=== PATIENT | male | born 1955 | race Caucasian/White ===

== ENCOUNTER 2020-06-11 05:23 | Day surgery (SDC) | payer BC ==
[2020-06-04 15:52] LABS: BASOPHILS % (AUTO) 0.6 % (0-1); EOSINOPHILS # (AUTO) 0.1 X10'3 (0-0.9); EOSINOPHILS % (AUTO) 1.2 % (0-6); LYMPHOCYTES # (AUTO) 1.8 X10'3 (1.1-4.8); LYMPHOCYTES % (AUTO) 27.6 % (21-51); MEAN CORPUSCULAR HEMOGLOBIN 31.5 PG (27.0-31.0); MEAN CORPUSCULAR HGB CONC 33.8 g/dL (33.0-36.5); MEAN CORPUSCULAR VOLUME 93.3 FL (78-98); MEAN PLATELET VOLUME 9.3 FL (7.4-10.4); MONOCYTES # (AUTO) 0.5 X10'3 (0-0.9); MONOCYTES % (AUTO) 7.6 % (2-12); NEUTROPHILS # (AUTO) 4.2 X10'3 (1.8-7.7); PRE OP HEMATOCRIT 46.3 % (42.0-52.0); PRE OP HEMOGLOBIN 15.6 g/dL (14.0-17.9); PRE OP PLATELET COUNT 156 X10'3 (140-440); RED BLOOD COUNT 4.96 X10'6 (4.70-6.10); RED CELL DISTRIBUTION WIDTH 13.5 % (11.5-14.5)
[2020-06-04 16:04] LABS: ALBUMIN 3.8 G/DL (3.4-5.0); ALBUMIN/GLOBULIN RATIO 1.1 (1.1-1.5); ALKALINE PHOSPHATASE 83 IU/L (46-116); BLOOD UREA NITROGEN 12 MG/DL (7-18); CALCIUM 8.7 MG/DL (8.5-10.1); CHLORIDE 103 MMOL/L (99-107); CREATININE 0.75 MG/DL (0.60-1.10); PRE OP ALT 33 U/L (30-65); PRE OP ANION GAP 9 (8-16); PRE OP AST 11 U/L (10-37); PRE OP BILIRUB, TOTAL 0.7 MG/DL (0.0-1.0); PRE OP GLUCOSE 155 MG/DL (70-104); PRE OP POTASSIUM 3.8 MMOL/L (3.4-5.1); PRE OP SODIUM 139 MMOL/L (135-145); TOTAL CARBON DIOXIDE 26.6 MMOL/L (24-32); TOTAL PROTEIN 7.3 G/DL (6.4-8.2); eGFR > 90 ML/MIN
[2020-06-11] VITALS (11 sets, daily range): BP systolic 120–147; BP diastolic 81–92
[~2020-06-11] VITALS: Ht 172.7 cm; Wt 90.7 kg
[~2020-06-11 05:23] MED LIST: ATOR20TA PO; FEXO-25 PO; LOSA50TA3 PO; THY15T PO; ringers solution, lacted 1,000 ML IV SCH
[2020-06-11] MEDS ORDERED: famotidine 20mg tablet PO ONE (05:30)
[2020-06-11] MEDS ORDERED: cefazolin/dext.iso 2gm/50ml 50 ML IV ONE (05:30)
[2020-06-11] MEDS ORDERED: INDOCYANINE GREEN 25 MG/10 ML VIAL IV ONE (05:30)
[2020-06-11] MEDS ORDERED: LIDOcaine 1% (10mg/ml) 2ml vial ONE (05:55)
[2020-06-11] MEDS ORDERED: BUPIVAcaine/PF 2.5 mg/ml (0.25%) 30ml vial ONE (06:38)
[2020-06-11] MEDS ORDERED: LIDOcaine 1% 30ml preserv. free vial ONE (06:38)
[2020-06-11] MEDS ORDERED: fentaNYL/PF 50MCG/1 ML 2ML syringe ONE (07:38)
[2020-06-11] MEDS ORDERED: midazolam 2 mg/2 ml injection ONE (07:38)
[2020-06-11] MEDS ORDERED: propofol inj 20 ML IV ONE (07:39)
[2020-06-11] MEDS ORDERED: rocuronium 10mg/ml inj IV ONE (07:40)
[2020-06-11] MEDS ORDERED: dexamethasone sod phosphate 4mg/ml inj. ONE (07:48)
[2020-06-11] MEDS ORDERED: morphine 4 MG/ML inj SYRINge IV PRN (08:10)
[2020-06-11] MEDS ORDERED: ondansetron/PF 4mg/2ml inj IV PRN (08:10)
[2020-06-11] MEDS ORDERED: ringers solution, lacted 1,000 ML IV SCH (08:10)
[2020-06-11] MEDS ORDERED: meperidine/PF 25mg/ml syringe IV PRN ×3 (08:10)
[2020-06-11] MEDS ORDERED: morphine 2 MG/ML inj. syringe IV PRN (08:10)
[2020-06-11] MEDS ORDERED: proCHLORperazine 10 MG/2 ml inj IV PRN (08:10)
[2020-06-11] MEDS ORDERED: ondansetron/PF 4mg/2ml inj ONE (08:26)
[2020-06-11] MEDS ORDERED: sugammadex 200mg/2ml injection IV ONE (08:26)
[2020-06-11] MEDS ORDERED: HYDROcodone/acetaminophen 5mg/325mg tablet PO PRN (08:45)
[2020-06-11] MEDS ORDERED: HYDROcodone/acetaminophen 10/325mg tab PO PRN (08:45)
--- NOTE | 2020-06-11 08:46 | NUR ---
Received from OR via [facility], accompanied by Anesthesiologist DR DENSON and report given by Anesthesiologist. PT DROWSY, NO S/S OF DISTRESS/DISCOMFORT. ABDOMEN W/2 LAP SITES W/BANDAIDS CDI. Addendum: 06/11/20 at 0911 by Cindy Finch RN Amended: Links added.
--- NOTE | 2020-06-11 10:36 | NUR ---
PT UP AND ABLE TO AMBULATE SAFELY, PTS PAIN IS TOLERABLE, D/C INSTRUCTIONS GIVEN AND GONE OVER W/PT AND PTS WHO BOTH VERBALIZED UNDERSTANDING, PT D/CD TO HOME VIA W/C TO PRIVATE VEHICLE W/O INCIDENT. Addendum: 06/11/20 at 1056 by Cindy Finch RN Amended: Links added.
== END 2020-06-11 10:36 | disposition home or self-care (01) ==
LOC: PAS 05:23
PROVIDERS: ATTEND Surgery
DX: K80.18 Calculus of gallbladder with other cholecystitis without obstruction (principal); E03.9 Hypothyroidism, unspecified; E78.00 Pure hypercholesterolemia, unspecified; I10 Essential (primary) hypertension; E66.9 Obesity, unspecified; Z68.30 Body mass index [BMI] 30.0-30.9, adult; Z79.899 Other long term (current) drug therapy; Z20.828 Contact with and (suspected) exposure to other viral communicable diseases; Z91.018 Allergy to other foods; Z82.49 Family history of ischemic heart disease and other diseases of the circulatory system; Z83.49 Family history of other endocrine, nutritional and metabolic diseases
CPT/HCPCS: 36415; 47563; 80053; 82948; 85025; 87635; 93005; C9399; J1100; J2001; J2175; J2250; J2405; J2704; J3010; J3490; J7120; S2900; A4215; A4618; A7000